=== PATIENT | female | born 1945 | race Caucasian/White ===

== ENCOUNTER 2016-09-09 13:44 | Day surgery (SDC) | payer MEDICARE, OTHER ==
[~2016-09-09] VITALS: Ht 157.5 cm; Wt 45.0 kg
[2016-09-09 14:31] LABS: BASOPHILS 0.8 % (0.0-2.0); EOSINOPHILS 1.8 % (0-7); HEMOGLOBIN 14.9 g/dL (12-16); LYMPHOCYTES 27.1 % (15-50); MCHC 33.9 g/dL (31.0-37.0); MCV 94.6 fL (80.0-100.0); MEAN PLATELET VOLUME 9.3 fL (7.4-10.4); MONOCYTES 4.9 % (2-11); NEUTROPHILS 65.4 % (40-80); PLATELET COUNT 197 10x3/uL (130-400); RBC 4.65 10x6/uL (4.00-5.40); RDW 12.4 % (11.5-14.5)
[2016-09-09] MEDS ORDERED: ULTRAM50 MG PO (14:46)
[2016-09-09] MEDS ORDERED: PROAIR HFA8.5 GM INH (14:46)
[2016-09-09] MEDS ORDERED: ATIVAN0.5 MG PO (14:46)
[2016-09-09] MEDS ORDERED: ANASTROZOLE1 MG PO (14:46)
[2016-09-09 14:53] VITALS: BP 123/87; Ht 157.5 cm; Wt 45.0 kg
--- NOTE | 2016-09-09 16:18 | NUR ---
BALLOON DILATION DONE TO 18MM.
[2016-09-09] MEDS ORDERED: PROTONIX40 MG PO (16:36)
--- NOTE | 2016-09-22 12:04 | OP ---
PATIENT NAME: PETRA DAVIS MEDICAL RECORD: [id number] :43 LOCATION:D.[facility] ADMISSION DATE: SURGEON: EVELYN ELLIOTT DO DATE OF OPERATION: 09/09/2016 PROCEDURES: EGD with biopsies and balloon dilation. ENDOSCOPIST: Evelyn Elliott DO. SCOPE: Olympus video gastroscope. MEDICATIONS: Propofol 170 mg per anesthesia. INDICATIONS: Generalized abdominal pain, epigastric abdominal pain, dysphagia with history of dilation. FINDINGS: Informed consent was given. The patient was made comfortable with the above medication. After reaching an adequate level of sedation by slow IV push, the patient was placed on her left side. The endoscope was then advanced under direct visualization through the mouth down to the second portion of the duodenum. The proximal, middle and distal thirds of the esophagus all appeared normal. Right at the distal esophagus and GE junction, there appeared and felt to be some stenosis of the esophagus. This was dilated with an Olympus dilating balloon without fluoroscopic guidance or a guidewire. Initial diameter was 16 mm and this was increased up to 18 mm diameter successfully. The scope was advanced down to the stomach and retroflexed where a small sliding hiatal hernia was visualized involving the cardia. The fundus of the stomach appeared normal, but there did appear to be some streaky linear erythematous gastritis in the antrum and prepyloric region. Random biopsies were taken to rule out H. pylori and sent for histology. The scope was advanced down to the duodenum where the bulb and the second portion of the duodenum appeared normal. Scope was then withdrawn from the patient. The patient tolerated the procedure well and there were no complications. IMPRESSION: 1. 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 This was dilated with a balloon up to 18 mm. 2. Small sliding hiatal hernia. 3. Possible gastritis of the antrum and prepyloric region. This was biopsied with cold forceps. PLAN AND RECOMMENDATIONS: 1. A trial of Protonix 40 mg p.o. daily times 2 months. 2. Consider imaging via ultrasound of the abdomen or CT of the abdomen and pelvis with contrast if pain does not improve. 3. Repeat EGD as needed for dysphagia. 4. Consider colonoscopy for generalized abdominal pain. TRANSINT:[id number] Voice Confirmation ID: [id number] DOCUMENT ID: [id number] OPERATIVE REPORT [id number] PETRA DAVIS EVELYN ELLIOTT DO at 1204 CC: [id number] DICTATION DATE: 09/09/16 1602 [employer]: 09/10/16 0034 [facility] 09/09/16 [id number] [place] [address]
== END 2016-09-09 17:25 | disposition home or self-care (01) ==
LOC: D.OPS 13:44
PROVIDERS: Anesthesiology
DX: K22.2 Esophageal obstruction (principal); R10.9 Unspecified abdominal pain; K21.9 Gastro-esophageal reflux disease without esophagitis; J44.9 Chronic obstructive pulmonary disease, unspecified; K44.9 Diaphragmatic hernia without obstruction or gangrene

== ENCOUNTER → 2016-12-23 11:29 | Day surgery (SDC) | payer MEDICARE, OTHER ==
[~2016-12-23] VITALS: Ht 157.5 cm; Wt 44.9 kg
[~2016-12-23 11:29] MED LIST: ANASTROZOLE1 MG PO; ATIVAN0.5 MG PO; PROAIR HFA8.5 GM INH; PROTONIX40 MG PO; ULTRAM50 MG PO
[2016-12-23 12:07] LABS: BASOPHILS 0.6 % (0-2); EOSINOPHILS 1.4 % (0-7); HEMATOCRIT 46.4 % (36.0-48.0); HEMOGLOBIN 15.8 g/dL (12-16); IMMATURE GRANULOCYTES 0.2 % (0-5); LYMPHOCYTES 28.6 % (15-50); MCH 32.2 pg (26.0-34.0); MCHC 34.1 g/dL (31.0-37.0); MCV 94.7 fL (80.0-100.0); MEAN PLATELET VOLUME 9.5 fL (7.4-10.4); MONOCYTES 6.6 % (2-11); NEUTROPHILS 62.6 % (40-80); PLATELET COUNT 219 10x3/uL (130-400); RDW 12.5 % (11.5-14.5); WBC 6.4 10x3/uL (4.8-10.8)
[2016-12-23 12:36] LABS: CALCIUM 9.7 mg/dL (8.5-10.1); CARBON DIOXIDE 30.2 mmol/L (21.0-32.0); CREATININE - SERUM 0.8 mg/dL (0.6-1.3); POTASSIUM - SERUM 4.2 mmol/L (3.5-5.1)
[2016-12-23 12:40] VITALS: BP 117/81; Ht 157.5 cm; Wt 44.9 kg
--- NOTE | 2016-12-23 15:34 | NUR ---
1520-PT ESCORTED OUT BY VOLUNTEER.
== END | disposition home or self-care (01) ==
LOC: D.OPS 11:29
PROVIDERS: Anesthesiology
DX: K57.30 Diverticulosis of large intestine without perforation or abscess without bleeding (principal); D12.4 Benign neoplasm of descending colon; K64.8 Other hemorrhoids; Z80.0 Family history of malignant neoplasm of digestive organs; Z01.812 Encounter for preprocedural laboratory examination

== ENCOUNTER → 2019-01-18 12:23 | Outpatient (CLI) | payer MEDICARE, OTHER ==
[2016-12-23 12:40] VITALS: BMI 18.1
[~2019-01-18 12:23] MED LIST changes: +HYDROCODON-ACE1 EA10 PO
== END | disposition home or self-care (01) ==
LOC: D.MRI 12:23
PROVIDERS: ATTEND Orthopaedic Surgery
DX: M25.511 Pain in right shoulder (principal)

== ENCOUNTER 2020-11-15 20:31 | Emergency (ER) | payer MEDICARE, OTHER ==
[~2020-11-15] VITALS: Ht 157.5 cm; Wt 45.4 kg
[2020-11-15 20:39] VITALS: BP 140/84; Ht 157.5 cm; Wt 45.4 kg
[2020-11-15] MEDS ORDERED: MORPHINE SULFAT15 M4 PO (20:42)
[2020-11-15] MEDS ORDERED: MORPHINE IMMEDI30 M1 PO (20:42)
[2020-11-15] MEDS ORDERED: KLOR-CON 1010 MEQ PO ×2 (20:43→21:43)
[2020-11-15] MEDS ORDERED: LASIX40 MG PO ×2 (20:43→21:43)
== END 2020-11-16 00:30 | disposition home or self-care (01) ==
LOC: D.ER 20:31
DX: R60.0 Localized edema (principal); C79.81 Secondary malignant neoplasm of breast; J44.9 Chronic obstructive pulmonary disease, unspecified; M79.604 Pain in right leg